=== PATIENT | male | born 1985 | race Caucasian/White ===

== ENCOUNTER 2022-05-10 08:34 | Outpatient (CLI) | payer BC, SELFPAY ==
--- NOTE | 2022-05-10 11:00 | NEURO_ITS ---
Impression: # History of bilateral hand tingling and numbness. # Normal nerve conduction study. # Normal needle/EMG exam. # Clinical correlation recommended. Motor Nerve Conduction Upper Extremities Median Nerve Conduction Velocity (m/sec) Terminal Latency (msec) Response Voltage(mV) Elbow-Wrist Wrist Elbow Wrist Right 60 3.2 7 9 Left 60 3.4 5 8 Ulnar Nerve Conduction Velocity (m/sec) Terminal Latency (msec) Response Voltage(mV) Above Elbow Below Elbow Wrist Above Elbow Below Elbow Wrist Right 58 59 2.2 6 7 7 Left 58 60 2.3 5 5 6 F-Wave Latency Median (ms) Ulnar (ms) Right 27.2 26.8 Left 27.2 27.8 Sensory Nerve Conduction Upper Extremities Median Nerve Stimulation Terminal Latency (msec) Wrist/Digit Response Voltage (uV) Wrist Right 3.5/3.5 54/53 Left 3.2/3.2 51/78 Ulnar Nerve Stimulation Terminal Latency (msec) Wrist/Digit Response Voltage (uV) Wrist Right 2.5 50 Left 2.5 35 Radial Nerve Terminal Latency (msec) Response Voltage(mV) Right 2.1 51 Left 2.1 38 Left Right Muscles Examined Fibrillation Fasciculation Scarcity Voltage Duration Left Right Left Right Left Right Left Right Left Right Deltoid Biceps X X Brachioradialis Triceps X X Pronator Teres X X Ext Indicis X X Ext Digitorum X X Abd Poll Brev X X 1st Dorsal Interosseus Paraspinals MTDD
== END 2022-05-10 08:35 | disposition home or self-care (01) ==
PROVIDERS: PCP Family Medicine; Visit Provider Family Medicine
DX: R20.2 Paresthesia of skin (principal)
CPT/HCPCS: 95886; 95911

== ENCOUNTER 2022-07-20 09:44 | Outpatient (CLI) | payer BC, SELFPAY ==
--- NOTE | 2022-07-24 20:53 | WPDHOMESLEEP ---
Sleep Study - Home Unattended Date of Study: 07/20/22 Ordering Provider: Bassam Sorenson MD Interpreting Provider: Anabell Cerda, DO Home Sleep Study Type: Apnea Link Air Height: 1.75 m Weight: 80.739 kg Body Mass Index: 26.2 Neck Circumference (inches): 15.5 [place]: 2 Reason for Sleep Study Loud snoring, unrefreshing sleep Sleep History The patient is a 36-year-old male with seasonal allergies that had a sleep study ordered by his primary care physician for evaluation of sleep apnea the patient denies awakening from sleep short of breath. He denies awakening at night with heartburn, belching or cough. He constantly snores loudly enough that others complain. He occasionally has trouble sleeping when he has a cold. He denies waking up gasping for air throughout the night. He occasionally has breathing problems at night observed by himself or others. He denies sweating excessively at night. He denies having heart palpitations or irregular heartbeats during the night. He denies falling asleep during the day and while driving. He denies sleep paralysis and cataplexy. He rarely has trouble at school or work due to sleepiness. He frequently experiences vivid dreamlike scenes upon awakening or falling asleep. He denies feeling afraid of going to sleep he occasionally has nightmares. He occasionally remembers his dreams. He occasionally has thoughts racing through his mind. He denies feeling sad or depressed. He rarely has anxiety. He denies having muscular tension. He rarely notices parts of his body jerk. He denies kicking during the night. He denies having crawling and aching feelings in his legs and denies having leg pain during the night. He denies grinding his teeth during sleep and denies awakening with morning jaw pain. He denies being bothered by pain during the day and denies being awakened by pain during the night. He occasionally wakes up feeling stiff in the morning. He occasionally wakes up with sore or achy muscles. He occasionally wakes up with pain in the neck, spine or other joints. He goes to bed at 10:30 p.m. on weekdays and 11:00 p.m. on the weekends. It takes him 5 minutes to fall asleep. He wakes up 1-2 times throughout the night to urinate and is able to fall back asleep within 5 minutes. He wakes up at 6:00 a.m. on weekdays and at 6:30 a.m. on the weekends. He typically gets 7 8 hours of sleep per night. He will stay in bed for 15 minutes after waking up in the morning. He currently lives with his and 2 children. He does not consume any caffeinated beverages within 2 hours of bedtime. He does not engage in physical exercise before bedtime. He denies reading and watching television before falling asleep. He denies taking naps in the afternoon or the evening. He drinks 2 cups of coffee daily. He will consume 2 alcoholic beverages per day on the weekends. He denies tobacco and recreational drug use. [facility] Social History Social History Smoking status: Never smoker Second hand tobacco smoke exposure: No Alcohol intake: current Drinks per week: 3 Substance use: never Substance use type: does not use Living arrangements: with family Occupation/Education: occupation Additional occupation/education comments: Sales Gender identity (if verbalized by the patient): Male Medications Home Medications Medication Instructions Recorded Confirmed Type eszopiclone 3 mg tablet (Lunesta) 3 mg PO QHS #1 tablet 07/21/22 Rx Sleep Procedure This test was performed using 4 channel monitoring including respiratory effort channel, snoring channel, heart rate channel, and oxygen saturation channel. This study was scored using [facility] guidelines. Sleep Architecture The patient had a total recording time of 7 hours 38 minutes and total monitoring time of 5 hours 59 minutes. The patient spent 5 hours 11 minutes, 86.5% o
[2022-07-24 21:02] VITALS: BMI 26.2
== END 2022-07-22 11:27 | disposition home or self-care (01) ==
PROVIDERS: PCP Family Medicine; Visit Provider Family Medicine
DX: G47.10 Hypersomnia, unspecified (principal); G47.33 Obstructive sleep apnea (adult) (pediatric)
CPT/HCPCS: 95806

== ENCOUNTER 2024-06-10 18:28 | Emergency (ER) | payer SELFPAY ==
--- NOTE | 2024-06-10 18:29 | ED_ITS ---
HPI - URI/Sore Throat General Chief Complaint: Upper Respiratory Infection Stated Complaint: Flu Positive Time Seen by Provider: 06/10/24 18:28 Source: patient Mode of arrival: ambulatory Limitations: no limitations History of Present Illness HPI Narrative: Ervin is a 38-year-old male patient presenting to the clinic today with complaints of flu-like symptoms. He reports he has had symptoms for over 8 days. [place] better yesterday but his fever and congestion is worse today. Does have some chest discomfort with cough. Denies any chest pain. Highest fever was 101 today MD elicited complaint: fever, cough, nasal congestion and sinus pain Related Data Home Medications ?Medication ?Instructions ?Recorded ?Confirmed ?Last Taken ?Type cetirizine 10 mg tablet (Zyrtec) 10 mg PO DAILY PRN 11/29/22 11/28/23 Unknown History Allergies Allergy/AdvReac Type Severity Reaction Status Date / Time cat dander Allergy Mild Itching Verified 06/10/24 18:30 Review of Systems Review of Systems: Pertinent positives per HPI. Patient denies any fever, chills, rash, headache, visual changes, dizziness, shortness of breath, chest pain, palpitations, nausea, vomiting, diarrhea, constipation, abdominal pain, or any urinary issues. [facility] Past Medical History Medical History Seasonal allergies GOLDEN (obstructive sleep apnea) Establishing care with new doctor, encounter for Social History Social History Smoking status: Never smoker Second hand tobacco smoke exposure: No Alcohol intake: current Drinks per week: 3 Substance use: never Substance use type: does not use Lack of Transportation: No Lack of Food: Never True Current Housing: I Have Housing Concerned About Future Housing: No Difficulty Paying Gas/Electric Bills: No Difficulty Paying for Meds: No Currently Unemployed: No Education: Master's Degree or Higher Difficulty w/ Childcare or Family Care: No Living arrangements: with family Occupation/Education: occupation Additional occupation/education comments: Sales Gender identity (if verbalized by the patient): Male Agree to blood products: Yes Comments At the time of my signature, I reviewed and agree with the nursing past medical, surgical, social, and family history. There is no relevant family history pertinent to the patient complaint. Exam Narrative: General: Well-developed, well nourished, in no apparent distress Head: Normocephalic, atraumatic Eyes: Pupils equally round and reactive to light bilaterally, EOM intact, sclera and conjunctive clear, no discharge, lids normal Ears: TMs intact and clear, ear canals clear, no drainage, grossly hearing normal. Nose: Nares patent, green nasal discharge, moderate inflammation, maxillary and frontal sinus tenderness. Mouth: Oral pharynx without lesions or masses, good dentition, MMM. Postnasal drip Neck: Supple, trachea midline, no enlargement of anterior or posterior cervical nodes, no thyroid masses or goiter palpable. Cardio: Regular rate and rhythm, s1 and s2 normal, no murmur appreciated. Resp: Clear to auscultation bilaterally, no rhonchi, rales, wheezing or rubs Course Course Emergency Course: Portions of this record may have been created with voice recognition software. Level of Care: Express Care Visit Vital Signs Vital signs: Vital Signs Temperature 36.7 C 06/10/24 18:35 Pulse Rate 82 06/10/24 18:35 Respiratory Rate 16 06/10/24 18:35 Blood Pressure 122/78 06/10/24 18:35 Pulse Oximetry 99 06/10/24 18:35 Oxygen Delivery Room Air 06/10/24 18:35 Temperature 36.7 C 06/10/24 18:35 Pulse Rate 82 06/10/24 18:35 Respiratory Rate 16 06/10/24 18:35 Blood Pressure 122/78 06/10/24 18:35 Pulse Oximetry 99 06/10/24 18:35 Oxygen Delivery Room Air 06/10/24 18:35 Vital signs reviewed MDM - URI/Sore Throat MDM Narrative Medical decision making narrative: At the time of visit patient is resting comfortably on the exam table. Patient appears to be nontoxic. = Plan: I suspect patient has acute rhinosinusitis. Prescription for doxycycline and prednisone was sent to the pharmacy. Supportive measures were discussed with the patient and they voiced understanding discharge instructions and agrees to treatment plan. Return precautions reviewed Differential Diagnosis Differential diagnosis: Likely upper respiratory infection, otitis media, sinusitis, viral infection, bronchitis, influenza, pharyngitis and other (COVID) Discharge Plan Discharge Clinical Impression: Acute bacterial rhinosinusitis Patient Disposition: Home, Self-Care Condition: Stable Instructions: Antibiotic Form, Rhinosinusitis (ED) Additional Instructions: Take prescription medications only as prescribed-doxycycline and prednisone Increase fluids and stay well hydrated Tylenol/motrin for pain/fever Flonase and OTC antihistamines as directed Vicks vapor rub to open sinuses Sinus rinses for congestion Cepacol spray, cough drops, throat lozenges, warm tea with honey/lemon, gargle salt water to soothe throat BRAT diet for diarrhea Clear liquids x 24 hours then advance as tolerated for nausea/vomiting Go to the ED if you develop a worsening in your condition- high fever not controlled by Tylenol or Motrin, dehydration, weakness, lethargy, shortness of breath, or chest pain. Follow up with your PCP in 3-5 days if symptoms persist. Patient Language: [place] Islander Prescriptions: New prednisone 20 mg tablet 40 mg PO DAILY 5 Days Qty: 10 0RF doxycycline monohydrate 100 mg capsule 100 mg PO BID 10 Days Qty: 20 0RF No Action cetirizine [Zyrtec] 10 mg tablet 10 mg PO DAILY PRN Follow-up/Referrals: UNKNOWN,DOCTOR [Non-Staff] - Time of Disposition: 18:39 Quality NIHSS Nursing Documentation ED NIHSS nursing documentation: reviewed/agree
[2024-06-10 18:35] VITALS: BP 122/78; PULSE 82; RESP 16; TEMP 36.7; O2SAT 99
== END 2024-06-10 18:44 | disposition home or self-care (01) ==
PROVIDERS: Emergency Provider Nurse Practitioner Family
DX: J01.90 Acute sinusitis, unspecified (principal)
CPT/HCPCS: 99213; G0463

== ENCOUNTER 2025-04-06 09:21 | Emergency (ER) | payer BC, SELFPAY ==
[2025-04-06 09:30] VITALS: BP 113/76; PULSE 94; RESP 16; TEMP 36.4; O2SAT 100
--- NOTE | 2025-04-06 10:20 | ED_ITS ---
HPI - General Adult General Chief complaint: Upper Respiratory Infection Stated complaint: SORE THROAT/COUGH Time Seen by Provider: 04/06/25 10:20 Source: patient Mode of arrival: ambulatory Limitations: no limitations History of Present Illness HPI narrative: 39-year-old male patient presents to [facility] with complaints of cold symptoms for the past 6 days. Patient states the 1st 3 days symptoms he had body aches, chills, fevers as high as 101. Patient states 3 members of his household did test positive for COVID. Patient states he did not test himself but just assumed that it was COVID. Patient states all symptoms have resolved but continues to have a sore throat so went, in and check in and rule out strep throat. Patient states he would also like steroids for his cough. Related Data Home Medications ?Medication ?Instructions ?Recorded ?Confirmed ?Last Taken ?Type cetirizine 10 mg tablet (Zyrtec) 10 mg PO QHS 02/04/25 02/04/25 Unknown History fluticasone propionate 50 2 spray intranasal DAILY 02/04/25 Unknown History mcg/actuation nasal spray,suspension (Flonase Allergy Relief) ibuprofen 200 mg tablet 400 mg PO BID PRN 02/04/25 1 Unknown History loratadine 10 mg tablet (Claritin) 10 mg PO DAILY 01/2202/04/25 Unknown History Allergies Allergy/AdvReac Type Severity Reaction Status Date / Time cat dander Allergy Mild Itching Verified 02/04/25 09:59 Review of Systems Review of Systems: CONSTITUTIONAL: Denies fever, chills, or sweats. EYES: Denies visual changes, redness, or discharge. ENT: Denies rhinorrhea, congestion, Positive sore throat, denies otalgia. CARDIOVASCULAR: Denies chest pain, palpitations, or edema. RESPIRATORY: positive cough , denies dyspnea. GASTROINTESTINAL: Denies abdominal pain, nausea, vomiting, or diarrhea. GENITOURINARY: Denies dysuria or hematuria. SKIN: Denies rash or itching. MUSCULOSKELETAL: Denies back pain, joint pain, or myalgia. NEUROLOGIC: Denies headache, numbness, or weakness. PSYCHIATRIC: Denies anxiety or depression. COUNT INCLUDES THE [facility] Past Medical History Medical History History of asthma Seasonal allergies GOLDEN (obstructive sleep apnea) Establishing care with new doctor, encounter for Social History Social History Smoking status: Never smoker Second hand tobacco smoke exposure: No Alcohol intake: current Drinks per week: 3 Substance use: never Substance use type: does not use Lack of Transportation: No Lack of Food: Never True Current Housing: I Have Housing Concerned About Future Housing: No Difficulty Paying Gas/Electric Bills: No Difficulty Paying for Meds: No Currently Unemployed: No Education: Master's Degree or Higher Difficulty w/ Childcare or Family Care: No Living arrangements: with family 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 There is no relevant family history pertinent to the presenting complaint. Exam Narrative: GENERAL: Well-appearing, well-nourished, and in no acute distress. HEAD: Normocephalic, atraumatic. EYES: PERRLA and EOMI. ENT: Nares with erythema edema noted bilaterally, no rhinorrhea or epistaxis. Mucous membranes moist. posterior pharynx with no erythema, tonsillar enlargement, exudates or lesions present. Bilateral TMs are clear no erythema foreign bodies the canal. NECK: Supple. No lymphadenopathy CHEST: Clear to auscultation. No respiratory distress. HEART: Regular rate and rhythm. No murmur heard. Normal peripheral pulses. ABDOMEN: Soft, nontender, nondistended, normal active bowel sounds. EXTREMITIES: Normal range of motion. No edema. SKIN: Warm, dry, no rash. NEURO: No focal deficits. Alert and oriented x3. Course Course Level of Care: Express Care Visit Vital Signs Vital signs: Vital Signs Temperature 36.4 C L 04/06/25 09:30 Pulse Rate 94 04/06/25 09:30 Respiratory Rate 16 04/06/25 09:30 Blood Pressure 113/76 04/06/25 09:30 Pulse Oximetry 100 04/06/25 09:30 Temperature 36.4 C L 04/06/25 09:30 Pulse Rate 94 04/06/25 09:30 Respiratory Rate 16 04/06/25 09:30 Blood Pressure 113/76 12/14/25 09:30 Pulse Oximetry 100 04/06/25 09:30 Vital signs reviewed. MDM MDM Narrative Medical decision making narrative: Discussed with patient that his point of care testing for strep was negative today we will send to the lab for culture and if the culture comes back positive we will call in antibiotics at that time. Discussed with patient since many of his family members tested positive for COVID this is most likely towards the end of his COVID infection. Offered to test him today however patient has denied. Discussed with patient that we will give him a mild steroid to help with the coughing and sore throat pain also recommend warm salt water gargles, hot tea and honey to help with sore throat pain. Discussed with patient continue taking [id number] medications and would highly recommend some vitamins to help boost his immune system such as vitamin-C, zinc and vitamin D3. Patient v erbalized understanding denies any other questions or concerns at this time Differential Diagnosis Differential Diagnosis: Differential diagnosis: Allergic rhinitis, chronic sinusitis, tonsillitis, acute sinusitis, infectious mononucleosis, seasonal influenza, pertussis, diphtheria, meningococcal disease, viral syndrome, viral bronchitis, RSV, COVID- 19 Lab Data Labs: Lab Results 04/06/25 Range/Units 10:22 POC Grp A Strep Screen Negative (Negative) Critical Care Time Critical Care Time Critical Care Time: No Discharge Plan Discharge Clinical Impression: Pharyngitis, Contact with and (suspected) exposure to covid-19 Patient Disposition: Home Condition: Stable Instructions: Antibiotic Form, Viral Syndrome (ED) Additional Instructions: Viral illness may last between 7-12days; antibiotic is NOT recommended at this time. Recommend antihistamine such as Benadryl at night time and Claritin/Zyrtec/Juli during the day take oral steroid as directed to help with coughing and sore throat pain. May take some [id number] vitamins to help boost her immune system such as vitamin-C, 2000 mg in the morning and 2000 mg in the evening, zinc 50 mg daily for 5 days, and vitamin D3 2000 IU daily. Use Home inhaler as needed for cough, wheezing, shortness of breath or chest tightness. Also, recommend symptomatic treatment includes: rest, fluids, and increase humidity of the air at home. Recommend Acetaminophen or nonsteroidal anti-inflammatory agents (NSAIDs) as directed in the bottle to reduce fever and/pain/headache. Avoid smoking/second-hand smoke. Limit visits to areas with large crowds. Please schedule a follow-up visit with your personal physician for further evaluation and treatment within 3-5days. Including recheck and discussion of your blood pressure. If your symptoms persist, change or worsen significantly before you can contact your personal physician then please, without delay, go to the emergency department for further evaluation. Patient Language: Greenlandic Prescriptions: New methylprednisolone 4 mg tablets,dose pack See Rx Instructions PO .COMPLEX Qty: 21 0RF Rx Instructions: for 6 days No Action cetirizine [Zyrtec] 10 mg tablet 10 mg PO QHS albuterol sulfate 90 mcg/actuation HFA aerosol inhaler 2 puff inhalation Q4H PRN (Reason: shortness of breath or wheezing) Qty: 8.5 0RF fluticasone propionate [Flonase Allergy Relief] 50 mcg/actuation spray,suspension 2 spray intranasal DAILY Rx Instructions: administer into each nostril loratadine [Claritin] 10 mg tablet 10 mg PO DAILY ibuprofen 200 mg tablet 400 mg PO BID PRN Follow-up/Referrals: Matthew Sorenson MD [Primary Care Provider, Family Practice] Time of Disposition: 10:28
[2025-04-06 10:23] LABS: EDSTREPNEGPOS1 Negative (Negative)
== END 2025-04-06 10:34 | disposition home or self-care (01) ==
PROVIDERS: Emergency Provider Nurse Practitioner Family; PCP Family Medicine
DX: J02.9 Acute pharyngitis, unspecified (principal); Z20.822 Contact with and (suspected) exposure to COVID-19; J45.909 Unspecified asthma, uncomplicated
CPT/HCPCS: 87081; 87880; 99213; G0463